=== PATIENT | male | born 1975 | race Caucasian/White ===

== ENCOUNTER 2017-06-14 00:50 | Emergency (ER) | payer BC, OTHER ==
[2017-06-14 00:55] VITALS: BP 171/119
[2017-06-14] MEDS ORDERED: Lidocaine 1% 50 ML MDV ONE (01:23)
[2017-06-14] MEDS ORDERED: Ketorolac 60 MG/2 ML SDV ONE (02:07)
[2017-06-14] MEDS ORDERED: Ketorolac 60 MG/2 ML SDV IM ONE (02:07)
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
[2017-06-14] MEDS ORDERED: Diphtheria,Pertussis(Acell),Tetanus Vaccine 0.5 ML SDV IM ONE (02:47)
[2017-06-14] MEDS ORDERED: Lidocaine 1% 50 ML MDV INJECT STA (03:17)
--- NOTE | 2017-06-14 13:55 | CT ---
Head CT Technique: Multiple axial sections through the brain were obtained. Intravenous contrast was not utilized. Comparison: Soft tissue swelling is seen posteriorly as well as soft tissue hematoma involving the scalp. Scalp hematoma is also seen within the left frontal region. Ventricles along with basal cisterns and sulci over the convexities are within normal limits for the patient's age. No abnormal parenchymal densities are seen. No evidence of intracranial hemorrhage. No midline shift or mass effect is seen. No discrete calvarial abnormality is identified. Small amount of fluid is seen within the right maxillary sinus. Mild mucosal thickening is noted within the ethmoid sinuses. Impression: 1. Scalp hematoma within the left frontal and posterior scalp. 2. Mild sinus disease as described above. 3. No acute intracranial abnormality is identified. Diagnostic code #3 I agree with preliminary report issued by [facility] ([facility] report finalized on 06/14/17, 3:24 AM Central Time)
== END 2017-06-14 03:09 | disposition home or self-care (01) ==
LOC: JD.ED 00:50
DX: S09.90XA Unspecified injury of head, initial encounter (principal); S01.01XA Laceration without foreign body of scalp, initial encounter; S01.81XA Laceration without foreign body of other part of head, initial encounter; F17.210 Nicotine dependence, cigarettes, uncomplicated; W25.XXXA Contact with sharp glass, initial encounter; Y93.89 Activity, other specified
CPT/HCPCS: 12002; 12013; 70450; 90471; 96372; 99284; J1885